=== PATIENT | male | born 1980 ===

== ENCOUNTER 2023-01-13 08:08 | Emergency (ER) | payer OTHER ==
[2023-01-13] MEDS ORDERED: Diphtheria,Pertussis(Acell),Tetanus Vaccine 0.5 ML Syringe IM ONE (08:12)
[2023-01-13] MEDS ORDERED: Bacitracin Oint 1 GM U/D Packet TOP ONE (08:12)
[2023-01-13] MEDS ORDERED: Lidocaine 1% 5 ML VIAL INJECT ONE (08:12)
== END 2023-01-13 08:38 | disposition home or self-care (01) ==
LOC: DL.ED 08:08
DX: S69.91XA Unspecified injury of right wrist, hand and finger(s), initial encounter (principal); Z23 Encounter for immunization; X58.XXXA Exposure to other specified factors, initial encounter
CPT/HCPCS: 90471; 90715; 99282; 99283-25; A9270-GY; J3490